=== PATIENT | female | born 1970 | race Caucasian/White ===

== ENCOUNTER → 2021-05-17 09:27 | Outpatient (BNVA) | payer MEDICAID, SELFPAY | PROVIDERS: PCP Family Medicine; Visit Provider Specialist | DX: R41.1 Anterograde amnesia (principal); S06.9X9S Unspecified intracranial injury with loss of consciousness of unspecified duration, sequela; F43.10 Post-traumatic stress disorder, unspecified; R52 Pain, unspecified; F17.200 Nicotine dependence, unspecified, uncomplicated | CPT/HCPCS: 96116; 99204; 99205 ==

== ENCOUNTER → 2021-09-13 09:35 | Outpatient (BNVA) | payer MEDICAID, SELFPAY | PROVIDERS: PCP Family Medicine; Visit Provider Specialist | DX: R41.3 Other amnesia (principal); Z87.820 Personal history of traumatic brain injury; F17.200 Nicotine dependence, unspecified, uncomplicated | CPT/HCPCS: 99214 ==

== ENCOUNTER → 2022-03-21 10:21 | Outpatient (BNVA) | payer MEDICAID, SELFPAY | PROVIDERS: PCP Family Medicine; Visit Provider Specialist | DX: R41.89 Other symptoms and signs involving cognitive functions and awareness (principal); R56.9 Unspecified convulsions; S06.9X9S Unspecified intracranial injury with loss of consciousness of unspecified duration, sequela; Y93.9 Activity, unspecified | CPT/HCPCS: 99214 ==

== ENCOUNTER → 2022-08-07 08:19 | Outpatient (BNVA) | payer MEDICAID, SELFPAY | PROVIDERS: PCP Family Medicine; Referring Provider Specialist; Visit Provider Specialist | DX: R56.9 Unspecified convulsions (principal); S06.9X9A Unspecified intracranial injury with loss of consciousness of unspecified duration, initial encounter; X58.XXXA Exposure to other specified factors, initial encounter | CPT/HCPCS: 95812 ==

== ENCOUNTER → 2022-10-15 14:57 | Outpatient (BNVA) | payer MEDICAID, SELFPAY | PROVIDERS: PCP Family Medicine; Visit Provider Specialist | DX: R41.3 Other amnesia (principal); R41.89 Other symptoms and signs involving cognitive functions and awareness; S06.9X9S Unspecified intracranial injury with loss of consciousness of unspecified duration, sequela; X58.XXXS Exposure to other specified factors, sequela | CPT/HCPCS: 99214 ==